=== PATIENT | male | born 1945 | race Caucasian/White ===

== ENCOUNTER → 2017-03-17 | Outpatient (CLI) | payer OTHER ==
[~2017-03-17] MED LIST: LISI-788 PO; SIMV40TA2 PO
[2017-03-17 18:45] LABS: ALT/SGPT 33 U/L (12-78); AST/SGOT 25 U/L (15-37); BLOOD UREA NITROGEN 13 mg/dl (7-18); BUN/CREATININE RATIO 12.8 (10-20); CALCIUM 9.8 mg/dl (8.5-10.1); CARBON DIOXIDE 24 mmol/L (21-32); CHLORIDE 107 mmol/L (98-107); GLUCOSE 110 mg/dl (70-99); POTASSIUM 3.8 mmol/L (3.5-5.1); SODIUM 139 mmol/L (136-145)
[2017-03-17 18:47] LABS: ALKALINE PHOSPHATASE 94 U/L (45-117); CHOLESTEROL 153 mg/dl (0-200); CHOLESTEROL/HDL RATIO 3.3; HDL CHOLESTEROL 47 mg/dl; LDL CHOLESTEROL CALCULATED 60 mg/dl; TRIGLYCERIDES 230 mg/dl (0-150); VERY LOW DENSITY LIPOPROT CALC 46 mg/dl
[2017-03-18 07:37] LABS: ESTIMATED AVERAGE GLUCOSE 137 mg/dl; HA1C FLAG Normal (Normal)
--- NOTE | 2017-04-12 13:15 | CODING QUERY MEDICAL NECESSITY ---
CQSUPPORTING DIAGNOSIS NEEDED A supporting diagnosis is required for the test/procedure performed on this patient in order for us to be reimbursed by the patient's insurance. Please provide a supporting diagnosis for the following test/procedure listed below next to the test name along with your signature. *If there is no additional diagnosis for this patient that would support the following test/procedure please document that below next to the test/procedure. Test(s)/Procedure(s) that require a supporting diagnosis: DOS 03/17/17 GLYCATED HEMOGLOBIN TEST Provider Signature: Date: Thank you Carol Ramirez Health Information Management Once completed, please kindly fax back to [phone] For questions please call [phone]
== END | disposition home or self-care (01) ==
LOC: C.LABPVFM 14:24
PROVIDERS: ATTEND Nurse Practitioner
DX: R60.0 Localized edema (principal); E78.5 Hyperlipidemia, unspecified; I10 Essential (primary) hypertension; E11.9 Type 2 diabetes mellitus without complications

== ENCOUNTER → 2017-11-02 | Outpatient (CLI) | payer OTHER ==
[2017-11-02 13:21] LABS: HEMOGLOBIN A1C 6.5 % (4.5-5.6)
[2017-11-02 13:32] LABS: BLOOD UREA NITROGEN 19 mg/dl (7-18); CALCIUM 9.6 mg/dl (8.5-10.1); CARBON DIOXIDE 29 mmol/L (21-32); CREATININE 1.13 mg/dl (0.60-1.40); GLUCOSE 129 mg/dl (70-99); POTASSIUM 3.7 mmol/L (3.5-5.1); SODIUM 135 mmol/L (136-145)
== END | disposition home or self-care (01) ==
LOC: C.LABPVFM 10:01
PROVIDERS: ATTEND Nurse Practitioner
DX: I10 Essential (primary) hypertension (principal); E11.69 Type 2 diabetes mellitus with other specified complication

== ENCOUNTER → 2018-04-21 | Outpatient (CLI) | payer OTHER ==
--- NOTE | 2018-04-21 11:54 | DIAGNOSTIC IMAGING REPORT ---
RIGHT TIBIA AND FIBULA 2 VIEWS CLINICAL HISTORY: AP and lateral views of the right tibia and fibula are obtained. No prior studies are available for comparison at the time of dictation. The skeletal structures are osteopenic. No acute fracture is identified. A benign-appearing 10 mm cortical-based lucency is noted in the proximal fibula. The knee and ankle joints are grossly maintained. A dorsal calcaneal enthesophyte is observed. Marked soft tissue edema is present throughout the calf. IMPRESSION: 1. Soft tissues swelling with no radiographic evidence of right tibial or fibular fracture. 2. A 10 mm benign-appearing cortical-based lucency is noted in the proximal fibula. A 6 month precautionary follow-up is recommended for reassessment. Electronically signed by: Elvin Laureano M.D. 04/21/2018 11:53 AM Dictated Date/Time: 04/21/2018 11:51 AM
== END | disposition home or self-care (01) ==
LOC: C.RADPV 11:35
PROVIDERS: ATTEND Family Medicine
DX: S80.10XA Contusion of unspecified lower leg, initial encounter (principal); X58.XXXA Exposure to other specified factors, initial encounter; M79.606 Pain in leg, unspecified; M79.9 Soft tissue disorder, unspecified; M85.861 Other specified disorders of bone density and structure, right lower leg

== ENCOUNTER 2023-04-13 08:24 | Observation (INO) ==
--- NOTE | 2023-04-13 08:43 | Emergency Department Note ---
Impression & Plan Chest pain ED Provider Note NAME: LOIS BORGES AGE: 77 SEX: M : 1945 ARRIVES VIA: Ambulance INFORMANT: Patient, EMS ED PROVIDER(S): Yvan Owusu DO CHIEF COMPLAINT: Chest pain HPI: The patient is a 77-year-old male who presented to the emergency department for an evaluation of chest pain. The patient describes anterior chest pain that he describes as a pressure which began over the course the last few days. He notices it with exertion. He noticed it today when he was out walking. He states the pain is now resolved. He called 911 because of the pain. He was given aspirin and nitroglycerin prior to arrival. He has a history of diabetes. He also has a history of venous thromboembolic disease. He states this does not feel like his previous history of thromboembolic disease. He denies having any worsening leg swelling but does have chronic right leg swelling. ROS: See above HPI for pertinent positives & negatives. A total of 10 systems reviewed and were otherwise negative. PAST MEDICAL HISTORY: See Below PAST SURGICAL HISTORY: See Below FAMILY HISTORY: See Below SOCIAL HISTORY: See Below HOME MEDICATIONS: See Below ALLERGIES: See Below VITALS: See Below PHYSICAL EXAMINATION: GENERAL: Patient is awake alert in no acute distress patient is resting comfortably and showing no signs of anxiety EYES: The conjunctivae are clear. The pupils are round and reactive. EARS, NOSE, MOUTH AND THROAT: The nose is without any evidence of any deformity. NECK: The neck is nontender and supple. RESPIRATORY: Normal respiratory effort is noted there is no evidence of wheezing rhonchi or rales CARDIOVASCULAR: Regular rate and rhythm noted there no murmurs rubs or gallops normal S1 normal S2. GASTROINTESTINAL: The abdomen is soft. Abdomen is nontender. MUSCULOSKELETAL/EXTREMITIES: There is no evidence of gross deformity full range of motion is noted in the hips and shoulders. SKIN: Pedal edema was noted bilaterally right greater than left. Pulses are symmetric in both feet. NEUROLOGIC: Patient is awake alert and oriented x3 MEDICAL DECISION MAKING: The patient is a 77-year-old male who presented to the emergency department for an evaluation of chest pain. The patient has been having exertional chest pain over the course the last few days. The patient was treated with aspirin and nitroglycerin prior to arrival with significant improvement of his symptoms. I discussed the patient's laboratory and radiographic studies with him. I discussed the limitations of the emergency department work-up for chest pain with him. Ultimately I do feel the patient may require further inpatient work- up for this discomfort especially given his age and comorbidities. For this reason I discussed this case with the on-call [facility] hospitalist. They have agreed to evaluate the patient in the emergency department for further management and disposition. Triage Nursing notes reviewed. Prior medical records reviewed Vital Signs: reviewed and remarkable for elevated blood pressure. Differential diagnosis: Cardiac ischemia, aortic dissection, pulmonary embolism, pneumothorax, pneumonia, pericarditis, myocarditis, esophageal rupture, GERD, cholecystitis, pancreatitis, musculoskeletal, as well as other pathologies. ER treatment provided: See below Diagnostics interpreted by me: ECG: EKG was obtained in the emergency department. My interpretation is sinus rhythm at 92 bpm. Frequent PVCs were noted. ST segment depressions were noted in the low lateral leads. This was compared to a tracing from June 23, 2011. No significant changes were noted. Prehospital EKG was reviewed. My interpretation is sinus rhythm at 97 bpm. Frequent PVCs were noted. The ST segment depression is present on the prehosp ital EKG as well. This compares similar to the EKG obtained in the emergency department Cardiac Monitoring: An order was placed for continuous cardiac monitoring. The monitor shows a rate of 91 bpm with sinus rhythm. Laboratory studies: As stated above and show below. Imaging studies: See below. Radiographic imaging was reviewed by myself Consultation(s): I discussed this case with Dr. John who is on-call for the [facility] ospitalist group. Past Med/Surg History Medical History (Updated 04/13/23 @ 11:14 by Emre John MD) Diabetes mellitus Diverticulosis of colon History of DVT (deep vein thrombosis) 2007 - RLE (provoked - extensive car travel) Hyperlipidemia Hypertension Obesity, diabetes, and hypertension syndrome Surgical History Hx of hernia repair umbilical Hx of knee surgery left- arthroscopy Hx of tonsillectomy Family History Father Prostate cancer Stroke Mother Dementia Grandfather (Maternal) Coronary heart disease in his 90s from CAD Denies family history of Ovarian cancer Myocardial infarction Breast cancer Colorectal cancer Social History (Updated 04/13/23 @ 11:08 by Emre John MD) Smoking Status: Never smoker Second Hand Exposure: No; Do You Dip or Chew Tobacco: No; Hx Alcohol Use: Yes Alcohol type: wine Alcohol Intake Frequency: Monthly or Less Alcohol Intake Frequency Comment: On occasion Hx Substance Use: No Preferred Language: [place] Communication Ability: Effective Satellite Communications Operator Required: No Beliefs That Will Affect Care: None marital status: Current Living Situation: Spouse current occupational status: retired 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 How many Children do You have: 2 Other Information That Helps Us Care for You: No Feels Safe at Home: Yes Safety Concerns: Feels Safe At This Time Childhood Exposure to Second-Hand Smoke: No Diet: regular caffeine: Yes Dental Care, Regularly: Yes Physical Activity Frequency: Does not Exercise Seatbelt Use: always Sunscreen Use: No Assistive Devices: None Allergies Allergies Allergy/AdvReac Type Severity Reaction Status Date / Time MARYA Inhibitors Allergy Verified 04/13/23 10:44 lisinopril Allergy Verified 04/13/23 10:44 codeine AdvReac Intermediate STOMACH Unverified 04/13/23 10:44 PROBLEMS Home Meds Home Medications Medication Instructions Recorded Confirmed epinephrine 0.3 mg/0.3 mL 0.3 ml IM ONCE PRN anaphylaxis #1 05/25/19 04/13/23 injection, auto-injector ea Previous Rx's Medication Instructions Recorded aspirin 81 mg tablet,delayed 81 mg PO DAILY #30 tabs 06/01/19 release (Derrick Low Dose Aspirin) metformin 750 mg tablet,extended 750 mg PO BID #180 tabs 04/22/22 release 24 hr amlodipine 10 mg tablet 10 mg PO DAILY #90 tabs 10/23/22 hydrochlorothiazide 12.5 mg tablet 12.5 mg PO DAILY #90 tabs 10/23/22 rosuvastatin 20 mg tablet 20 mg PO DAILY #90 tabs 10/23/22 sildenafil 50 mg tablet 50 mg PO DAILY PRN sexual activity 11/23/22 #10 tabs Results & Data (ED) Vital Signs Vital Signs - 24 hr 04/13/23 08:27 04/13/23 08:27 04/13/23 08:35 Temperature 36.5 C Temperature Source Oral Pulse Rate 99 H Respiratory Rate 20 Respiratory Effort / Characteristics Non-Labored Respiratory Depth Normal Blood Pressure 184/95 H Blood Pressure Mean 124 Pulse Oximetry 97 95 96 Oxygen Delivery Method Room Air Room Air Room Air Sepsis Recent Fever Within 48 Hours No Sepsis New/Unexplained Change in Mental Status N/A Sepsis Action Taken by Nursing No Action Required 04/13/23 08:50 Temperature Temperature Source Pulse Rate 91 H Respiratory Rate Respiratory Effort / Characteristics Respiratory Depth Blood Pressure Blood Pressure Mean Pulse Oximetry Oxygen Delivery Method Sepsis Recent Fever Within 48 Hours Sepsis New/Unexplained Change in Mental Status Sepsis Action Taken by Longterm Medications Current Medication List: was personally reviewed by me Laboratory Data Attestation: I reviewed the patient's lab results. 04/13/23 08:30 04/13/23 08:30 Lab Results 04/13/23 04/13/23 04/13/23 Range/Units 08:30 08:30 08:30 WBC 8.62 (4.8-10.8) K/ul RBC 5.66 (4.70-6.10) M/uL Hgb 17.1 (14.0-18.0) g/dl Hct 49.2 (42.0-52.0) % MCV 86.9 (80.0-100.0) fL MCH 30.2 (25.0-34.0) pg MCHC 34.8 (32.0-36.0) g/dL RDW Std Deviation 40.4 (36.4-46.3) fL RDW Coeff of Belia 12.9 (11.5-14.5) % Plt Count 261 (130-400) K/uL MPV 10.2 (9.4-12.4) fL Immature Gran % (Auto) 0.3 % Neut % (Auto) 69.8 % Lymph % (Auto) 19.8 % [place] % (Auto) 7.5 % Eos % (Auto) 1.9 % Baso % (Auto) 0.7 % Neut # (Auto) 6.01 (1.40-6.50) K/uL Lymph # (Auto) 1.71 (1.2-3.4) K/uL [place] # (Auto) 0.65 H (0.11-0.59) K/uL Eos # (Auto) 0.16 (0-0.50) K/uL Baso # (Auto) 0.06 (0-0.2) K/uL Immature Gran # (Auto) 0.03 (0.01-0.20) K/uL PT (9.0-12.0) Seconds INR (0.9-1.1) APTT (21.0-31.0) Seconds PTT Ratio Sodium 137 (136-145) mmol/L Potassium TNP Chloride 100 (98-107) mmol/L Carbon Dioxide 26 (21-32) mmol/L Anion Gap 11 (3-11) BUN 19 (6-23) mg/dl Creatinine 0.95 (0.6-1.4) mg/dl Est Cr Clr Drug Dosing 93.3 ml/min Est GFR ( Amer) 90.4 ml/min Est GFR (Non-Af Amer) 78.0 ml/min BUN/Creatinine Ratio 20.0 (10-20) Glucose 153 H (70-99(Fasting)) mg/dl Estimat Average Glucose 189 mg/dl Hemoglobin A1c 8.2 H (4.5-5.6) % Calcium 9.9 (8.6-10.3) mg/dl Total Bilirubin 0.6 (0.2-1.0) mg/dl AST TNP ALT 26 (7-52) U/L Alkaline Phosphatase 76 (34-104) U/L Troponin I High Sens 6.7 (0-20) pg/ml Total Protein 7.6 (6.0-8.3) gm/dl Albumin 4.4 (3.4-5.0) gm/dl Globulin 3.2 (2.5-4.0) gm/dl Albumin/Globulin Ratio 1.4 (0.9-2) Lipase 17 (11-82) U/L 04/13/23 04/13/23 Range/Units 08:30 09:44 WBC (4.8-10.8) K/ul RBC (4.70-6.10) M/uL Hgb (14.0-18.0) g/dl Hct (42.0-52.0) % MCV (80.0-100.0) fL MCH (25.0-34.0) pg MCHC (32.0-36.0) g/dL RDW Std Deviation (36.4-46.3) fL RDW Coeff of Belia (11.5-14.5) % Plt Count (130-400) K/uL MPV (9.4-12.4) fL Immature Gran % (Auto) % Neut % (Auto) % Lymph % (Auto) % [place] % (Auto) % Eos % (Auto) % Baso % (Auto) % Neut # (Auto) (1.40-6.50) K/uL Lymph # (Auto) (1.2-3.4) K/uL [place] # (Auto) (0.11-0.59) K/uL Eos # (Auto) (0-0.50) K/uL Baso # (Auto) (0-0.2) K/uL Immature Gran # (Auto) (0.01-0.20) K/uL PT 10.6 (9.0-12.0) Seconds INR 1.0 (0.9-1.1) APTT 26.5 (21.0-31.0) Seconds PTT Ratio 0.9 Sodium (136-145) mmol/L Potassium 4.0 Chloride (98-107) mmol/L Carbon Dioxide (21-32) mmol/L Anion Gap (3-11) BUN (6-23) mg/dl Creatinine (0.6-1.4) mg/dl Est Cr Clr Drug Dosing ml/min Est GFR ( Amer) ml/min Est GFR (Non-Af Amer) ml/min BUN/Creatinine Ratio (10-20) Glucose (70-99(Fasting)) mg/dl Estimat Average Glucose mg/dl Hemoglobin A1c (4.5-5.6) % Calcium (8.6-10.3) mg/dl Total Bilirubin (0.2-1.0) mg/dl AST 21 ALT (7-52) U/L Alkaline Phosphatase (34-104) U/L Troponin I High Sens (0-20) pg/ml Total Protein (6.0-8.3) gm/dl Albumin (3.4-5.0) gm/dl Globulin (2.5-4.0) gm/dl Albumin/Globulin Ratio (0.9-2) Lipase (11-82) U/L Administered Medications Heparin Sodium/Dextrose (Heparin Sodium/Dextrose) 25,000 units in 500 mls @ 35 mls/hr IV .[id number] FOR[facility]LY [facility]; Protocol Stop: 05/13/23 11:59 Last Admin: 04/13/23 12:40 Dose: 1,750 units/hr, 35 mls/hr Documented By: CARA Co-signed By: HLK Sodium Chloride (Nss 1000ml) 1,000 mls @ 100 mls/hr IV .Q10H KACEY Stop: 05/13/23 12:36 Last Admin: 04/13/23 12:44 Dose: 100 mls/hr Documented By: CARA Discontinued Medications Amlodipine Besylate (Amlodipine Besylate 5 Mg Tab) 10 mg PO NOW ONE Stop: 04/13/23 09:51 Last Admin: 04/13/23 10:12 Dose: 10 mg Documented By: TONNY Heparin Sodium/Dextrose (Heparin 84925 Unit/500 Ml D5w) Confirm Administered Dose 25,000 units IV .STK-MED ONE Stop: 04/13/23 11:14 Last Admin: 04/13/23 12:40 Dose: Not Given Documented By: CARA Metoprolol Tartrate (Metoprolol Tartrate 25 Mg Tab) 12.5 mg PO ONE ONE Stop: 04/13/23 11:00 Last Admin: 04/13/23 12:49 Dose: Not Given Documented By: CARA Imaging Data Attestation: I personally reviewed and interpreted this imaging study as follows: My Impression: 1 view chest x-ray was obtained in the emergency department. My interpretation is no free air or definite infiltrate, final report below. Radiologist's Impression: Chest X-Ray 04/13/23 08:30 XR chest 1V portable HISTORY: 77 years-old Male Chest pain, nonspecific COMPARISON: None TECHNIQUE: AP view of the chest FINDINGS: Cardiomediastinal and hilar silhouettes are within normal limits. Mild right hemidiaphragmatic elevation. No pneumothorax, pleural effusion or overt pulmonary edema. Mild subsegmental left basilar atelectasis. Degenerative changes of the shoulders and spine. IMPRESSION: No acute process. ACT 112: Negative or not required by law. The above report was generated using voice recognition software. It may contain grammatical, syntax or spelling errors. Electronically signed by: Stephen Kaufman M.D. 04/13/2023 8:44 AM Discharge Plan Visit Data Chief Complaint: Chest Pain ED Provider: Yvan Owusu Discharge Problem: Chest pain Patient Disposition: Admitted As Inpatient Discharge Instructions Interventions: ED Discharge Assessment Last Done: 04/13/23 12:40 Chest pain Qualifiers: Chest pain type: unspecified Qualified Code(s): R07.9 - Chest pain, unspecified
--- NOTE | 2023-04-13 08:45 | XRay Report ---
XR chest 1V portable HISTORY: 77 years-old Male Chest pain, nonspecific COMPARISON: None TECHNIQUE: AP view of the chest FINDINGS: Cardiomediastinal and hilar silhouettes are within normal limits. Mild right hemidiaphragmatic elevat ion. No pneumothorax, pleural effusion or overt pulmonary edema. Mild subsegmental left basilar atele ctasis. Degenerative changes of the shoulders and spine. IMPRESSION: No acute process. ACT 112: Negative or not required by law. The above report was generated using voice recognition software. It may contain grammatical, syntax o r spelling errors. Electronically signed by: Stephen Kaufman M.D. 04/13/2023 8:44 AM
[2023-04-13 09:00] LABS: Basophils # (auto) 0.06 K/uL (0-0.2); Basophils % (auto) 0.7 %; Eosinophils # (auto) 0.16 K/uL (0-0.50); Eosinophils % (auto) 1.9 %; Hematocrit (blood only) 49.2 % (42.0-52.0); Hemoglobin 17.1 g/dl (14.0-18.0); Immature Granulocytes # (auto) 0.03 K/uL (0.01-0.20); Immature Granulocytes % (auto) 0.3 %; Lymphocytes # (auto) 1.71 K/uL (1.2-3.4); Lymphocytes % (auto) 19.8 %; Mean Corpuscular Hemoglobin 30.2 pg (25.0-34.0); Mean Corpuscular Hgb Conc 34.8 g/dL (32.0-36.0); Mean Corpuscular Volume 86.9 fL (80.0-100.0); Mean Platelet Volume 10.2 fL (9.4-12.4); Monocytes # (auto) 0.65 K/uL (0.11-0.59); Monocytes % (auto) 7.5 %; Neutrophils # (auto) 6.01 K/uL (1.40-6.50); Neutrophils % (auto) 69.8 %; Platelet Count 261 K/uL (130-400); RDW Coefficient of Variation 12.9 % (11.5-14.5); RDW Standard Deviation 40.4 fL (36.4-46.3); Red Blood Count 5.66 M/uL (4.70-6.10); White Blood Count 8.62 K/ul (4.8-10.8)
[2023-04-13 09:21] LABS: Alanine Aminotransferase 26 U/L (7-52); Albumin Globulin Ratio 1.4 (0.9-2); Albumin Level 4.4 gm/dl (3.4-5.0); Alkaline Phosphatase 76 U/L (34-104); Anion Gap 11 (3-11); Bilirubin,Total 0.6 mg/dl (0.2-1.0); Blood Urea Nitrogen 19 mg/dl (6-23); Calcium 9.9 mg/dl (8.6-10.3); Carbon Dioxide 26 mmol/L (21-32); Chloride 100 mmol/L (98-107); Creatinine Clr Calc Pharmacy 93.3 ml/min; Est GFR (African American) 90.4 ml/min; Globulin 3.2 gm/dl (2.5-4.0); Glucose 153 mg/dl (70-99(Fasting)); Lipase 17 U/L (11-82); Sodium 137 mmol/L (136-145); Total Protein 7.6 gm/dl (6.0-8.3)
[2023-04-13 09:26] LABS: Troponin I High Sensitivity 6.7 pg/ml (0-20)
[2023-04-13] MEDS ORDERED: amLODIPine BESYLATE 5 MG TAB PO ONE (09:50)
[2023-04-13] MEDS ORDERED: ASPIRIN 81 MG ECTAB PO STA (09:51)
--- NOTE | 2023-04-13 09:57 | History & Physical Report ---
Date of Service April 13, 2023 Assessment & Plan (1) Chest pressure: Plan: His history is concerning for ischemia. He has multiple CAD risk factors including obesity, DM, HTN, hyperlipidemia, etc. His chest pressure episodes are becoming more frequent and requiring less activity to be provoked (this am he walked up 1 flight of steps which led to chest pressure with dyspnea). The pattern could represent unstable angina despite the negative EKG and the initial negative troponin. Symptoms did jeff fully with nitroglycerin given by EMS. Alternatively, he did just travel by car extensively in late February, and had extensive DVT of the RLE in 2007. VTE (DVT with PEs) cannot be fully ruled out at this time. Plan - * HS troponin now * STAT doppler of RLE - r/o DVT; strongly consider CTA chest to definitively r/o PE * telemetry * NPO in the event he needs heart cath * heparin infusion - this will cover unstable angina as well as small chance of VTE * continue aspirin 81mg daily * add metoprolol 12.5mg BID, first dose now * I also gave amlodipine in ER due to markedly elevated BPs * cardiology consult * echo I discussed his care with Dr Rodríguez from [facility]. In light of crescendoing symptoms/episodes proceeding with stress test is likely not prudent. If VTE is excluded then proceeding with heart catheterization may be best option. (2) History of DVT (deep vein thrombosis): Plan: RLE extensive 2007 provoked - extensive car travel to/from [facility] to [place] at that time took coumadin ~2 years no VTE since then no family h/o VTE see #1 above (3) Unstable angina: Plan: see #1 above nitro SL prn if recurrent pain then give nitropaste start beta danay serial trops echo (4) PVCs (premature ventricular contractions): Plan: numerous as seen on monitoring check mag level K noted to be normal start beta danay could be indicative of active ischemia (5) Diabetes mellitus: Plan: Check Hba1c BSGs q6h while NPO novolog SSI hold metformin (6) Hyperlipidemia: Plan: LDL was 52 in 03/2022 plan to recheck lipid profile while here (7) Hypertension: Plan: uncontrolled start metoprolol 12.5mg BID and titrate as needed gave amlodipine 10mg in ER which is chronic medication for him titrate meds and/or add MARYA/ARB for optimal control (8) Obesity (BMI 30-39.9): Plan: BMI 36.6 Plan updated at bedside care d/w cardiology History of Present Illness Chief Complaint: chest pressure Primary Care Provider: SHYLA Khalil 77yo male with history of T2DM, obesity, HTN, hyperlipidemia, and extensive DVT of the RLE in 2007 (provoked, multiple car trips to [place] from [facility]) presents with 3 days of intermittent chest pressure. Patient reports that for the last 2-3 weeks he has had severe fatigue. 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 The chest pressure was associated with a "pounding" sensation as well as mild dyspnea. The symptoms improved Wednesday simply by resting. No nausea/vomiting. No diaphoresis. With respect to the "pounding" sensation he reports NO tachycardia or heart racing but that he can simply feel his heart having skipped beats and beating strongly. On Wednesday he again had chest pressure with activities as well as the pounding sensation and dyspnea on exertion. Rest would alleviate the discomfort. He could not tell me how many times he felt the chest pressure on Wednesday. Wednesday he had similar symptoms of chest pressure with activity. His fatigue persisted. Then this am he was walking his dog and about 1/4 mile into the walk he developed the chest pressure with dyspnea. He walked back to his home and the pressure continued. He rested and the symptoms did jeff. However, he then climbed one flight of steps in his home and immediately had chest pressure with dyspnea. At that point he & his dialed 911. In the ambulance he recalls still having chest pressure and aspirin along with SL nitro were given. The pressure fully resolved with such. He has been chest pressure free since the ambulance ride. Patient thinks he took his medications this am but wasn't completely sure. He & his did travel by car from March 21 to March 28 to [facility]. With respect to his DVT event in 2007 he was NOT told he had PEs at that time. Allergies Allergy/AdvReac Type Severity Reaction Status Date / Time MARYA Inhibitors Allergy Verified 04/13/23 10:44 lisinopril Allergy Verified 04/13/23 10:44 codeine AdvReac Intermediate STOMACH Unverified 04/13/23 10:44 PROBLEMS Home Medications Medication Instructions Recorded Confirmed Type epinephrine 0.3 mg/0.3 mL 0.3 ml IM ONCE PRN anaphylaxis #1 05/25/19 04/13/23 History injection, auto-injector ea aspirin 81 mg tablet,delayed 81 mg PO DAILY #30 tabs 06/01/19 04/13/23 Rx release (Derrick Low Dose Aspirin) metformin 750 mg tablet,extended 750 mg PO BID #180 tabs 04/22/22 04/13/23 Rx release 24 hr amlodipine 10 mg tablet 10 mg PO DAILY #90 tabs 10/23/22 04/13/23 Rx hydrochlorothiazide 12.5 mg tablet 12.5 mg PO DAILY #90 tabs 10/23/22 04/13/23 Rx rosuvastatin 20 mg tablet 20 mg PO DAILY #90 tabs 10/23/22 04/13/23 Rx sildenafil 50 mg tablet 50 mg PO DAILY PRN sexual activity 11/23/22 04/13/23 Rx #10 tabs Past Med/Surg History Medical History (Updated 04/13/23 @ 11:14 by Emre John MD) Diabetes mellitus Diverticulosis of colon History of DVT (deep vein thrombosis) 2007 - RLE (provoked - extensive car travel) Hyperlipidemia Hypertension Obesity, diabetes, and hypertension syndrome Surgical History Hx of hernia repair umbilical Hx of knee surgery left- arthroscopy Hx of tonsillectomy Family History Father Prostate cancer Stroke Mother Dementia Grandfather (Maternal) Coronary heart disease in his 90s from CAD Denies family history of Ovarian cancer Myocardial infarction Breast cancer Colorectal cancer Social History (Updated 04/13/23 @ 11:08 by Emre John MD) Smoking Status: Never smoker Second Hand Exposure: No; Do You Dip or Chew Tobacco: No; Hx Alcohol Use: Yes Alcohol type: wine Alcohol Intake Frequency: Monthly or Less Alcohol Intake Frequency Comment: On occasion Hx Substance Use: No Preferred Language: Kosovan Communication Ability: Effective Clothing Room Supervisor Required: No Beliefs That Will Affect Care: None marital status: Current Living Situation: Spouse current occupational status: retired 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 How many Children do You have: 2 Other Information That Helps Us Care for You: No Feels Safe at Home: Yes Safety Concerns: Feels Safe At This Time Childhood Exposure to Second-Hand Smoke: No Diet: regular caffeine: Yes Dental Care, Regularly: Yes Physical Activity Frequency: Does not Exercise Seatbelt Use: always Sunscreen Use: No Assistive Devices: None Review of Systems Review of Systems: gen - no fevers or chills; good appetite; no weight change eyes - no change in vision last few days HENT - no sore throat, no dysphagia CV - chest pressure episodes x 3 days; no orthopnea; chronic right leg edema since his DVT; palpitations pulm - dyspnea on exertion x 3 days; mild dyspnea at rest today with his chest pressure; no cough GI - no nausea/emesis/diarrhea/BRBPR - no LUTs; no dysuria musculo - no arm or leg pains today endo - does not check his BSGs skin - no rash neuro - no headache Physical Exam Physical Exam: gen - obese, NAD eyes - PERRL HENT - hearing aids b/l; MMM; no lesions neck - no bruits; no JVD; no lymph nodes; no thyroid mass heart - irregular (PVCs); s1 s2; no murmur lungs - CTA b/l chest - no reproducible chest wall tenderness to palpation abd - obese, soft, NT, ND, BS+, no HSM ext - <1+ edema RLE; none on left; pulses 2+ b/l feet skin - stasis changes RLE mesa neuro - strength 5/5 x 4 exts; DTRs 2+ b/l upper & lower ext psych - a/o x 3 Results & Data Results & Data Vital Signs (Past 12 Hours) Vital Signs Temp Pulse Resp BP Pulse Ox O2 Del Method 04/13/23 08:50 91 H 04/13/23 08:35 96 Room Air 04/13/23 08:27 95 Room Air 04/13/23 08:27 36.5 C 99 H 20 184/95 H 97 Room Air Laboratory Results Laboratory Results - last 24 hr 04/13/23 04/13/23 04/13/23 08:30 08:30 08:30 WBC 8.62 RBC 5.66 Hgb 17.1 Hct 49.2 MCV 86.9 MCH 30.2 MCHC 34.8 RDW Std Deviation 40.4 RDW Coeff of Belia 12.9 Plt Count 261 MPV 10.2 Immature Gran % (Auto) 0.3 Neut % (Auto) 69.8 Lymph % (Auto) 19.8 [place] % (Auto) 7.5 Eos % (Auto) 1.9 Baso % (Auto) 0.7 Neut # (Auto) 6.01 Lymph # (Auto) 1.71 [place] # (Auto) 0.65 H Eos # (Auto) 0.16 Baso # (Auto) 0.06 Immature Gran # (Auto) 0.03 PT INR APTT PTT Ratio Sodium 137 Potassium TNP Chloride 100 Carbon Dioxide 26 Anion Gap 11 BUN 19 Creatinine 0.95 Est Cr Clr Drug Dosing 93.3 Est GFR ( Amer) 90.4 Est GFR (Non-Af Amer) 78.0 BUN/Creatinine Ratio 20.0 Glucose 153 H Estimat Average Glucose Pending Hemoglobin A1c Pending Calcium 9.9 Magnesium Total Bilirubin 0.6 AST TNP ALT 26 Alkaline Phosphatase 76 Troponin I High Sens 6.7 Total Protein 7.6 Albumin 4.4 Globulin 3.2 Albumin/Globulin Ratio 1.4 Lipase 17 SARS-CoV-2 (PCR) 04/13/23 04/13/23 04/13/23 08:30 09:44 10:14 WBC RBC Hgb Hct MCV MCH MCHC RDW Std Deviation RDW Coeff of Belia Plt Count MPV Immature Gran % (Auto) Neut % (Auto) Lymph % (Auto) [place] % (Auto) Eos % (Auto) Baso % (Auto) Neut # (Auto) Lymph # (Auto) [place] # (Auto) Eos # (Auto) Baso # (Auto) Immature Gran # (Auto) PT Pending INR Pending APTT Pending PTT Ratio Pending Sodium Potassium 4.0 Chloride Carbon Dioxide Anion Gap BUN Creatinine Est Cr Clr Drug Dosing Est GFR ( Amer) Est GFR (Non-Af Amer) BUN/Creatinine Ratio Glucose Estimat Average Glucose Hemoglobin A1c Calcium Magnesium Total Bilirubin AST 21 ALT Alkaline Phosphatase Troponin I High Sens Total Protein Albumin Globulin Albumin/Globulin Ratio Lipase SARS-CoV-2 (PCR) NEGATIVE 04/13/23 11:05 WBC RBC Hgb Hct MCV MCH MCHC RDW Std Deviation RDW Coeff of Belia Plt Count MPV Immature Gran % (Auto) Neut % (Auto) Lymph % (Auto) [place] % (Auto) Eos % (Auto) Baso % (Auto) Neut # (Auto) Lymph # (Auto) [place] # (Auto) Eos # (Auto) Baso # (Auto) Immature Gran # (Auto) PT INR APTT PTT Ratio Sodium Potassium Chloride Carbon Dioxide Anion Gap BUN Creatinine Est Cr Clr Drug Dosing Est GFR ( Amer) Est GFR (Non-Af Amer) BUN/Creatinine Ratio Glucose Estimat Average Glucose Hemoglobin A1c Calcium Magnesium Pending Total Bilirubin AST ALT Alkaline Phosphatase Troponin I High Sens Pending Total Protein Albumin Globulin Albumin/Globulin Ratio Lipase SARS-CoV-2 (PCR) Diagnostic Findings Chest X-Ray 04/13/23 08:30 XR chest 1V portable HISTORY: 77 years-old Male Chest pain, nonspecific COMPARISON: None TECHNIQUE: AP view of the chest FINDINGS: Cardiomediastinal and hilar silhouettes are within normal limits. Mild right hemidiaphragmatic elevation. No pneumothorax, pleural effusion or overt pulmonary edema. Mild subsegmental left basilar atelectasis. Degenerative changes of the shoulders and spine. IMPRESSION: No acute process. ACT 112: Negative or not required by law. The above report was generated using voice recognition software. It may contain grammatical, syntax or spelling errors. Electronically signed by: Stephen Kaufman M.D. 04/13/2023 8:44 AM EKG #1 - NSR with PVCs, no ST changes EKG #2 - NSR with PVCs, T waves slightly more flat V4-V6 in comparison to EKG #1 Code Status & VTE Plan Code Status full VTE Prophylaxis Plan VTE Prophylaxis will be ordered: Yes PG Care Time/CCT Total # of Minutes Spent Total Time Spent with Patient: Total time spent is greater than 50% in coordination of care (as documented) at patient's floor/unit and/or counseling patient: Coding Level of Care Code 00769 INT INP/OBS CARE 3/75MIN Diagnoses Chest pressure R07.89 History of DVT (deep vein thrombosis) Z86.718 Unstable angina I20.0 PVCs (premature ventricular contractions) I49.3 Diabetes mellitus E11.9 Hyperlipidemia E78.5 Hypertension I10 Obesity (BMI 30-39.9) E66.9
[2023-04-13] MEDS ORDERED: METOPROLOL TARTRATE 25 MG TAB PO ONE (10:59)
[2023-04-13] MEDS ORDERED: HEPARIN 25000 UNIT/500 ML D5W IV ONE (11:13)
[2023-04-13] MEDS ORDERED: Heparin IV Adult Wt-Based Standard *NO* Bolus Protocol IV SCH (11:15)
[2023-04-13 11:28] LABS: Partial Thromboplastin Ratio 0.9; Partial Thromboplastin Time 26.5 Seconds (21.0-31.0); Prothrombin Time 10.6 Seconds (9.0-12.0)
[2023-04-13 11:44] LABS: Troponin I High Sensitivity 5.9 pg/ml (0-20)
[2023-04-13 11:45] LABS: Estimated Average Glucose 189 mg/dl; Hemoglobin A1C 8.2 % (4.5-5.6)
[2023-04-13] MEDS ORDERED: ONDANSETRON INJ 2 MG/ML 2 ML VIAL IV PRN (12:37)
[2023-04-13] MEDS ORDERED: NITROGLYCERIN SL 0.4 MG/TAB TAB SL PRN (12:37)
[2023-04-13] MEDS ORDERED: ACETAMINOPHEN 325 MG TAB PO PRN (12:37)
[2023-04-13] MEDS ORDERED: EPINEPHrine ADULT AUTO-INJECT 0.3 MG SYR IM PRN (12:37)
[2023-04-13] MEDS ORDERED: MoRPHine SULFATE 2 MG/ML CARP IV PRN (12:37)
[2023-04-13] MEDS: HEPARIN SODIUM/DEXTROSE 25,000 UNITS/500 ML BAG IV SCH (12:40)
[2023-04-13] MEDS: SODIUM CHLORIDE 0.9% 1000ML 1,000 ML IV SCH (12:44)
--- NOTE | 2023-04-13 13:39 | XCELERA ---
[id number] \\[id number]
[2023-04-13] MEDS ORDERED: IOVERSOL 350 MG 125mL Prefilled Syringe IV ONE (14:03)
--- NOTE | 2023-04-13 14:27 | CT Scan Report ---
CT angio chest PE protocol CT DOSE: 792.06 mGy.cm HISTORY: 77 years-old Male with recent travel, chest pain, h/o DVT. Acute chest pain with shortness of breath TECHNIQUE: Multiple CTA images of the chest were obtained after the intravenous administration of 118 ml Optiray. Coronal and sagittal MIPS were obtained from the axial data set and were submitted for review. All measurements were obtained according to NASCET criteria. A dose lowering technique was u tilized adhering to the principles of ALARA. COMPARISON: Chest radiograph of same day. FINDINGS: CTA: Mild cardiomegaly. No pericardial effusion. Moderate coronary artery calcifications. Atherosclerosis of the aorta. No pulmonary emboli identified. Segmental and subsegmental branches are not well-visual ized secondary to respiratory motion artifact. CT CHEST: No thyroid nodule or lymphadenopathy. The lung bases are partially imaged. No pneumothorax, pleural e ffusion or overt pulmonary edema. Subsegmental bibasilar densities suggest atelectasis. No suspicious pulmonary nodules or masses. Mild bronchial wall thickening. Central airways are patent. Hepatic steatosis with suggested hepatomegaly. No acute process of the imaged upper abdomen. Unremark able soft tissues. No acute fracture. IMPRESSION: 1. No pulmonary emboli identified. 2. Mild bibasilar opacities suggestive of atelectasis. 3. No pleural effusion or airspace consolidation typical for pneumonia. ACT 112: Negative or not required by law. The above report was generated using voice recognition software. It may contain grammatical, syntax o r spelling errors. Electronically signed by: Stephen Kaufman M.D. 04/13/2023 2:25 PM
--- NOTE | 2023-04-13 14:38 | Cardiology Consultation ---
Date of Consultation April 13, 2023 Assessment & Plan (1) Unstable angina: -the patient's symptoms are concerning for coronary ischemia. -agree with heparin drip and aspirin therapy. -discussed with Dr. Wright. -proceed with cardiac catheterization this afternoon. (2) Hypertension: -borderline control on current regimen. -would likely benefit from a beta-danay. (3) Hyperlipidemia: -consider increasing dose of rosuvastatin. History of Present Illness Attending Physician: Emre John MD History of Present Illness Mr. Gomez is a 77-year-old male admitted earlier today with presumed crescendo angina pectoris. This consultation was ordered to assist in his cardiac management. The patient was in his usual state of health until approximately 2 weeks ago when he began to note persistent fatigue. However, on Wednesday, he began to notice substernal chest pressure with physical activity. There was a company exertional dyspnea. His symptoms resolved with rest. He can noted symptoms on Wednesday and Wednesday. This morning, he started his usual 1/2 mi walk with his dog. He again noted substernal chest pressure with associated dyspnea. He turned around after approximately 1/4 of a mi. When he returned home, his symptoms persisted for approximately 20 minutes. The symptoms recurred after he climbed 1 flight of stairs. His then called 911. While on route, the patient was given a sublingual nitroglycerin tablet and his symptoms resolved completely. Currently, patient is pain-free. He has never known of a cardiac event. He has never had a cardiac catheterization. We have discussed need to proceed with a cardiac catheterization this afternoon. Past medical and surgical history 1. Hypertension 2. Hypercholesterolemia 3. Diabetes mellitus 4. Obesity 5. Diverticulosis 6. Provoked DVT-2007 7. Umbilical hernia repair 8. 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 Allergies Allergy/AdvReac Type Severity Reaction Status Date / Time MARYA Inhibitors Allergy Verified 04/13/23 10:44 lisinopril Allergy Verified 04/13/23 10:44 codeine AdvReac Intermediate STOMACH Unverified 04/13/23 10:44 PROBLEMS Home Medications Medication Instructions Recorded Confirmed Type epinephrine 0.3 mg/0.3 mL 0.3 ml IM ONCE PRN anaphylaxis #1 05/25/19 04/13/23 History injection, auto-injector ea aspirin 81 mg tablet,delayed 81 mg PO DAILY #30 tabs 06/01/19 04/13/23 Rx release (Derrick Low Dose Aspirin) metformin 750 mg tablet,extended 750 mg PO BID #180 tabs 04/22/22 04/13/23 Rx release 24 hr amlodipine 10 mg tablet 10 mg PO DAILY #90 tabs 10/23/22 04/13/23 Rx hydrochlorothiazide 12.5 mg tablet 12.5 mg PO DAILY #90 tabs 10/23/22 04/13/23 Rx rosuvastatin 20 mg tablet 20 mg PO DAILY #90 tabs 10/23/22 04/13/23 Rx sildenafil 50 mg tablet 50 mg PO DAILY PRN sexual activity 11/23/22 04/13/23 Rx #10 tabs Patient History Medical History (Updated 04/13/23 @ 11:14 by Emre John MD) Diabetes mellitus Diverticulosis of colon History of DVT (deep vein thrombosis) 2007 - RLE (provoked - extensive car travel) Hyperlipidemia Hypertension Obesity, diabetes, and hypertension syndrome Surgical History Hx of hernia repair umbilical Hx of knee surgery left- arthroscopy Hx of tonsillectomy Family History Father Prostate cancer Stroke Mother Dementia Grandfather (Maternal) Coronary heart disease in his 90s from CAD Denies family history of Ovarian cancer Myocardial infarction Breast cancer Colorectal cancer Social History (Updated 04/13/23 @ 11:08 by Emre John MD) Smoking Status: Never smoker Second Hand Exposure: No; Do You Dip or Chew Tobacco: No; Hx Alcohol Use: Yes Alcohol type: wine Alcohol Intake Frequency: Monthly or Less Alcohol Intake Frequency Comment: On occasion Hx Substance Use: No Preferred Language: Tajik Communication Ability: Effective Special Education Resource Room Teacher Required: No Beliefs That Will Affect Care: None marital status: Current Living Situation: Spouse current occupational status: retired 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 HEENT exam is negative. Neck is supple with full carotid upstrokes. No carotid bruits. Jugular is pressure is flat at 90. There is no thyromegaly. Cardiovascular exam reveals a regular rhythm with normal S1 and S2. No S3, S4, or murmurs are noted. Lungs are clear without rales, rhonchi or wheezes. Abdomen is obese without bruits. Extremities reveal intact radial artery and posterior tibial pulses bilaterally. There is no peripheral edema. Results & Data Vital Signs (Past 12 Hours) Vital Signs Temp Pulse Pulse Resp BP BP Pulse Ox 04/13/23 12:37 87 04/13/23 12:28 36.6 C 83 18 158/76 H 94 04/13/23 11:30 88 20 152/69 H 94 04/13/23 08:50 91 H 04/13/23 08:35 96 04/13/23 10:12 86 20 150/73 H 94 04/13/23 08:27 95 04/13/23 08:27 36.5 C 99 H 20 184/95 H 97 O2 Del Method 04/13/23 12:37 04/13/23 12:28 Room Air 04/13/23 11:30 Room Air 04/13/23 08:50 04/13/23 08:35 Room Air 04/13/23 10:12 Room Air 04/13/23 08:27 Room Air 04/13/23 08:27 Room Air Laboratory Results CBC notes hemoglobin 17.1, crit 49.2, white count 8.6, a platelet count of [id number]. Electrolytes note a sodium 137, potassium 4.0, chloride 100, bicarb 26, BUN 19, creatinine 0.95, glucose of 153. High sensitivity troponin was 6.7 on presentation, currently 5.9. Diagnostic Findings Echocardiogram noted normal left ventricular systolic function without wall motion abnormalities. An estimated left ventricular ejection fraction of 60- 65%. There is borderline LVH. No valvular pathology. No prior study for comparison. EKG notes sinus rhythm with frequent PVCs. Chest x-ray shows no active disease. PG Care Time/CCT Total # of Minutes Spent Total Time Spent with Patient: Total time spent is greater than 50% in coordination of care (as documented) at patient's floor/unit and/or counseling patient: Coding Level of Care Code 59228 INT INP/OBS CARE 3/75MIN Diagnoses Unstable angina I20.0 Hypertension I10 Hyperlipidemia E78.5
--- NOTE | 2023-04-13 16:04 | Electrocardiogram Report ---
Test Reason : Blood Pressure : / mmHG Vent. Rate : 092 BPM Atrial Rate : 092 BPM P-R Int : 194 ms QRS Dur : 084 ms QT Int : 358 ms P-R-T Axes : 059 020 034 degrees QTc Int : 442 ms Sinus rhythm with frequent Premature ventricular complexes Otherwise normal ECG When compared with ECG of 23-JUN-2011 12:59, Premature ventricular complexes are now Present Confirmed by Yvan Rodríguez ([id number]) on 04/13/2023 4:04:25 PM Referred By: Confirmed By:Yvan Rodríguez
--- NOTE | 2023-04-13 16:05 | Electrocardiogram Report ---
Test Reason : Blood Pressure : / mmHG Vent. Rate : 080 BPM Atrial Rate : 080 BPM P-R Int : 196 ms QRS Dur : 074 ms QT Int : 388 ms P-R-T Axes : 053 020 022 degrees QTc Int : 447 ms Sinus rhythm with frequent Premature ventricular complexes Otherwise normal ECG When compared with ECG of 13-APR-2023 08:28, (unconfirmed) No significant change was found Confirmed by Yvan Rodríguez ([id number]) on 04/13/2023 4:05:10 PM Referred By: REFERRED SELF Confirmed By:Yvan Rodríguez
[2023-04-13] MEDS ORDERED: NITROGLYCERIN/D5W 100MCG/ML 20ML SYR ONE (16:31)
[2023-04-13] MEDS ORDERED: HEPARIN (PORCINE) 1000 UNIT/ML 10 ML (CATH LAB USE ONLY) ONE (16:31)
[2023-04-13] MEDS ORDERED: MIDAZOLAM HCL 1 MG/ML 2ML VIAL ONE (16:31)
[2023-04-13] MEDS ORDERED: fentaNYL citrate PF 100 MCG/2 ML VIAL ONE (16:31)
[2023-04-13] MEDS ORDERED: niCARdipine HCL INJ 2.5 MG/ML 10 ML AMP ONE (16:31)
--- NOTE | 2023-04-13 16:37 | Pre Anesthesia Assessment ---
Date of Service April 13, 2023 Pre Sedation Assessment Vital Signs Temp Pulse Pulse Resp BP BP Pulse Ox 04/13/23 14:45 84 20 162/91 H 95 04/13/23 12:37 87 04/13/23 12:28 97.9 F 83 18 158/76 H 94 04/13/23 11:30 88 20 152/69 H 94 04/13/23 08:50 91 H 04/13/23 08:35 96 04/13/23 10:12 86 20 150/73 H 94 04/13/23 08:27 95 04/13/23 08:27 97.7 F 99 H 20 184/95 H 97 O2 Del Method 04/13/23 14:45 Room Air 04/13/23 12:37 04/13/23 12:28 Room Air 04/13/23 11:30 Room Air 04/13/23 08:50 04/13/23 08:35 Room Air 04/13/23 10:12 Room Air 04/13/23 08:27 Room Air 04/13/23 08:27 Room Air Cardiovascular RRR, no murmur, no edema Respiratory normal respiratory effort, lungs clear to auscultation Pre-Sedation Airway Assessment Smoking Status: Never smoker Hx Sleep Apnea: No Short, Thick Neck: No Thyromental Distance: > or= 3.5 Finger Breadths Oral Cavity: + WNL Mallampati Class: III ASA: ASA3 NPO Status Date of Last Intake of Fluids: 04/13/23 Time of Last Intake of Fluids: 06:00 Date of Last Intake of Solid Food: 04/12/23 Time of Last Intake of Solid Foods: 18:00 Procedure Planning Contraindications for Sedation: none Current Medications Reviewed: Yes Notes The planned sedation has been discussed with the patient. Informed Consent was obtained. I have identified the patient, determined the appropriateness of sedation and have assessed the patient immediately prior to the procedure. All medicine(s) and interventions are by my order.
[2023-04-13] MEDS ORDERED: ADENOSINE IV SOLN 3 MG/ML 20 ML VIAL IV ONE (16:55)
--- NOTE | 2023-04-13 17:14 | Post Anesthesia Assessment ---
Date of Service April 13, 2023 Post Sedation Assessment Vital Signs Temp Pulse Pulse Resp BP BP Pulse Ox 04/13/23 14:45 84 20 162/91 H 95 04/13/23 12:37 87 04/13/23 12:28 97.9 F 83 18 158/76 H 94 04/13/23 11:30 88 20 152/69 H 94 04/13/23 08:50 91 H 04/13/23 08:35 96 04/13/23 10:12 86 20 150/73 H 94 04/13/23 08:27 95 04/13/23 08:27 97.7 F 99 H 20 184/95 H 97 O2 Del Method 04/13/23 14:45 Room Air 04/13/23 12:37 04/13/23 12:28 Room Air 04/13/23 11:30 Room Air 04/13/23 08:50 04/13/23 08:35 Room Air 04/13/23 10:12 Room Air 04/13/23 08:27 Room Air 04/13/23 08:27 Room Air Recovery Score Activity: Moves 4 extremities Respiration: Deep Breath/Cough Circulation: +/-20% PreAnes Value Consciousness: Fully Awake Oxygen Saturation: O2 needed for >90% Discharge Sedation Level of Care: Fast Track Phase II Post Sedation Plan On clinical assessment, the patient appears to have tolerated the sedation without complications. Patient is recovering as anticipated. Patient will continue to be monitored by nursing and may be discharged when sedation discharge criteria are met per below protocol. Upon Completions of procedure up to 15 minutes continue every 5 minute vital signs and the P.A.R. score; then discharge to a Phase I or Fast Track to Phase II per the following guidelines: * Discharge Patient to appropriate Phase II area if PAR is 8 or greater or return to pre- procedure baseline. The post - procedure orders will be as directed. * If PAR score is less than 8 or not return to pre-procedure baseline then patient will follow Phase I monitoring till PAR is reached for Phase II. The Phase I may be done in procedure room or may call to secure a Phase I area. * If naloxone or flumazenil are used for reversal, hold in Phase I for continued monitoring from when last reversal dose was given for a minimum of 60 minutes or longer pending the nurse and/or physician discretion of patient condition before discharge to Phase II. Please call the Sedation Physician to re-evaluate and complete post-note for discharge to Phase II area. Do NOT discharge from procedure sedation or Phase 1 until post- sedation evaluation note is complete by procedure /sedation MD Sedation Discharge Instructions to be given to the patient at discharge to home.
--- NOTE | 2023-04-13 17:28 | Cardiac Catheterization ---
[facility] Data: [employer] Cardiac Status Clinical evaluation leading to the procedure CAD Presenation: Positive Stress Test, Sx unlikely to be ischemic and Unstable angina Anginal Classification: CCS III Diagnostic Physicians Name: Marlon Wright MD Closure Device Recommendations: Medical Therapy and/or Counseling Cardiac Cath Procedure Full Procedure Date April 13, 2023 Pre-Procedure Diagnosis Pre-Procedure Diagnosis: Angina AUC Score AUC Score: 7 Post-Procedure Diagnosis Post-Procedure Diagnosis: Moderate CAD and Normal Intracardiac Pressures Procedure(s) Performed Procedure(s) Performed: Coronary Angiography, Left Heart Cath and Fractional Flow [employer] Assistant [employer] Buyer Marlon Wright MD Endoscopy Rn(s) Serge Estimated Blood Loss Estimated Blood Loss: 10 Medication(s) Medication(s): Fentanyl, Heparin, Lidocaine 1%, Nicardipine, Nitroglycerin and Versed Summary of Findings Indication: Suspected ACS Access: 6 Fr right radial artery Catheters: [place], EBU 3.5 guide Findings: LM -normal caliber, no significant disease LAD -moderate caliber vessel, diffuse mid segment disease up to 50%, distal vessel tapers prior to apex. High medium D1 without significant disease. Small D2 30% ostial. Medium D3 40% ostial. Circumflex -large caliber vessel, 50% ostial stenosis, remainder of vessel without significant disease. RCA -dominant, large caliber vessel, midsegment luminal irregularities, 30% distal 50 to 60 % ostial RPDA. Remainder of PDA without significant disease LVEDP -9 Procedure: -Left main cannulated with EBU 3.5 guide -Gómez FFR wire navigated into mid circumflex -IFR 1.0 Wire removed from circumflex and redirected into distal LAD -IFR 0.92 -Coronary angiography revealed no apparent complications post wire/catheter removal Summary: 1. Nonobstructive moderate multivessel coronary artery disease Diffuse mid LAD up to 50% (IFR nonobstructive at 0.92). 50% ostial circumflex (IFR nonobstructive at 1.0). 50 to 60% ostial RPDA Recommendations: No acute or high risk CAD to explain patient's recent chest symptoms. Recommend continued ASCVD risk factor modification Hemodynamics Rest Ao:: 126/63/83 Final Ao: 130/75/98 LV: 129/9 Recommendations Recommendations: Medical Therapy and/or Counseling Specimens Specimens: None Radiation Exposure (mGy) 2084 Contrast (mls) 130 Anesthesia moderate 1643 - 1510 Procedural Complication(s) None Disposition [employer] Holding/Recovery I attest to the content of the Intraoperative Record and any orders documented therein. Any exceptions are noted below. [facility] Card Cath Procedure Codes Cardiac Catheterization Procedure 1: Cardiovascular Cath Procedures: 85103 Coronaries and LHC (+/-LV) Procedure 2: Cardiovascular Cath Procedures: 75047 (Doppler) Pressure Wire Procedure 3: Cardiovascular Cath Procedures: 71265 (Doppler) Pressure Wire Addl vessel Moderate Sedation Procedure 1: Sedation/Anesthesia: 81603 Mod Sedation by the same physician;Init15 Min Child Age 5 & Up PG Care Time/CCT Total # of Minutes Spent Total Time Spent with Patient: Total time spent is greater than 50% in coordination of care (as documented) at patient's floor/unit and/or counseling patient:
[2023-04-13 19:41] LABS: Partial Thromboplastin Ratio 3.4
[2023-04-13 20:01] LABS: Partial Thromboplastin Time 96.2 Seconds (21.0-31.0)
[2023-04-13] MEDS: METOPROLOL TARTRATE 25 MG TAB PO SCH (20:09)
[2023-04-13] MEDS: ALBUTEROL HFA 8 GM INHALER INH SCH (21:09)
--- NOTE | 2023-04-13 21:31 | Ultrasound Report ---
Exam(s): US VENOUS RIGHT LOWER EXTREMITY EXAM: US Duplex Right Lower Extremity Veins CLINICAL HISTORY: Reason for exam: travel, prior h/o DVT RLE, sob; r/o acuteDVT. TECHNIQUE: Real-time duplex ultrasound scan of the right lower extremity veins integrating B-mode two-dimensional vascular structure, Doppler spectral analysis, color flow Doppler imaging and compression. 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 No acute appearing DVT in the visualized common femoral, femoral, proximal deep femoral or popliteal veins. Superficial veins: Unremarkable. No thrombus in the visualized great saphenous vein. Soft tissues: No acute findings. No popliteal cyst. 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 No acute appearing deep venous thrombosis identified. Electronically signed by: Jacqui Stark M.D. 04/13/23 21:30 PM
[2023-04-14] MEDS: SODIUM CHLORIDE 0.9% 1000ML 1,000 ML IV SCH ×2 (01:48→08:38)
[2023-04-14 03:53] LABS: BUN Creatinine Ratio 16.5 (10-20); Calcium 8.8 mg/dl (8.6-10.3); Chol HDL Ratio 3.4 (0-5); Creatinine Clr Calc Pharmacy 91.4 ml/min; Est GFR (African American) 88.1 ml/min; Est GFR (Non-African American) 76.1 ml/min; Potassium 3.7 mmol/L (3.5-5.1)
[2023-04-14 04:18] LABS: Partial Thromboplastin Ratio 1.4
[2023-04-14 04:34] LABS: Partial Thromboplastin Time 40.7 Seconds (21.0-31.0)
[2023-04-14] MEDS: HEPARIN SODIUM/DEXTROSE 25,000 UNITS/500 ML BAG IV SCH (05:39)
[2023-04-14] MEDS: ALBUTEROL HFA 8 GM INHALER INH SCH ×2 (07:31→10:39)
[2023-04-14] MEDS: METOPROLOL TARTRATE 25 MG TAB PO SCH (08:15)
[2023-04-14] MEDS ORDERED: ROSUVASTATIN CALCIUM 20 MG TAB PO SCH (09:00)
[2023-04-14] MEDS ORDERED: amLODIPine BESYLATE 5 MG TAB PO SCH (09:00)
[2023-04-14] MEDS ORDERED: ASPIRIN 81 MG ECTAB PO SCH (09:00)
--- NOTE | 2023-04-14 13:04 | Discharge Summary ---
Date of Service April 14, 2023 Admission HPI Per Admitting Provider 77yo male with history of T2DM, obesity, HTN, hyperlipidemia, and extensive DVT of the RLE in 2007 (provoked, multiple car trips to [place] from [facility]) presents with 3 days of intermittent chest pressure. Patient reports that for the last 2-3 weeks he has had severe fatigue. 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 The chest pressure was associated with a "pounding" sensation as well as mild dyspnea. The symptoms improved Wednesday simply by resting. No nausea/vomiting. No diaphoresis. With respect to the "pounding" sensation he reports NO tachycardia or heart racing but that he can simply feel his heart having skipped beats and beating strongly. On Wednesday he again had chest pressure with activities as well as the pounding sensation and dyspnea on exertion. Rest would alleviate the discomfort. He could not tell me how many times he felt the chest pressure on Wednesday. Wednesday he had similar symptoms of chest pressure with activity. His fatigue persisted. Then this am he was walking his dog and about 1/4 mile into the walk he developed the chest pressure with dyspnea. He walked back to his home and the pressure continued. He rested and the symptoms did jeff. However, he then climbed one flight of steps in his home and immediately had chest pressure with dyspnea. At that point he & his dialed 911. In the ambulance he recalls still having chest pressure and aspirin along with SL nitro were given. The pressure fully resolved with such. He has been chest pressure free since the ambulance ride. Patient thinks he took his medications this am but wasn't completely sure. He & his did travel by car from March 21 to March 28 to [facility]. With respect to his DVT event in 2007 he was NOT told he had PEs at that time. Discharge Exam gen - obese, NAD eyes - PERRL HENT - hearing aids b/l; MMM; no lesions neck - no bruits; no JVD; no lymph nodes; no thyroid mass heart - irregular (PVCs); s1 s2; no murmur lungs - CTA b/l chest - no reproducible chest wall tenderness to palpation abd - obese, soft, NT, ND, BS+, no HSM ext - <1+ edema RLE; none on left; pulses 2+ b/l feet skin - stasis changes RLE mesa neuro - strength 5/5 x 4 exts; DTRs 2+ b/l upper & lower ext psych - a/o x 3 Discharge Data Allergies Allergy/AdvReac Type Severity Reaction Status Date / Time MARYA Inhibitors Allergy Verified 04/13/23 10:44 lisinopril Allergy Verified 04/13/23 10:44 codeine AdvReac Intermediate STOMACH Unverified 04/13/23 10:44 PROBLEMS Consultations 04/13/23 09:48 ED Decision to Admit Stat 04/13/23 12:37 Consult Cardiology Routine Procedures Performed Operation Date: 04/13/23 14:30 Actual Procedures p Cineradiography w/Routine Exam - Brian Wright MD p Cath, Left with Cors and Vent - Brian Wright MD s Fraction Flow [place] Addl Bg Wright MD s Fraction Flow [place] SGL Bg Wright MD Ordered Studies 04/13/23 10:36 US venous doppler LE RT Stat 04/13/23 12:25 CT angio chest PE protocol Stat 04/13/23 14:29 CL Cath Imgs for PACS use only Routine Hospital Course (1) Chest pressure: His history is concerning for ischemia. He has multiple CAD risk factors including obesity, DM, HTN, hyperlipidemia, etc. His chest pressure episodes are becoming more frequent and requiring less activity to be provoked (this am he walked up 1 flight of steps which led to chest pressure with dyspnea). The pattern could represent unstable angina despite the negative EKG and the initial negative troponin. Symptoms did jeff fully with nitroglycerin given by EMS. Alternatively, he did just travel by car extensively in late February, and had extensive DVT of the RLE in 2007. VTE (DVT with PEs) cannot be fully ruled out at this time. Plan - * HS troponin now * STAT doppler of RLE - r/o DVT; strongly consider CTA chest to definitively r/o PE * telemetry * NPO in the event he needs heart cath * heparin infusion - this will cover unstable angina as well as small chance of VTE * continue aspirin 81mg daily * add metoprolol 12.5mg BID, first dose now * I also gave amlodipine in ER due to markedly elevated BPs * cardiology consult * echo I discussed his care with Dr Rodríguez from [facility]. In light of crescendoing symptoms/episodes proceeding with stress test is likely not prudent. If VTE is excluded then proceeding with heart catheterization may be best option. (2) History of DVT (deep vein thrombosis): RLE extensive 2007 provoked - extensive car travel to/from [facility] to [place] at that time took coumadin ~2 years no VTE since then no family h/o VTE see #1 above (3) Unstable angina: see #1 above nitro SL prn if recurrent pain then give nitropaste start beta danay serial trops echo (4) PVCs (premature ventricular contractions): numerous as seen on monitoring check mag level K noted to be normal start beta danay could be indicative of active ischemia (5) Diabetes mellitus: Check Hba1c BSGs q6h while NPO novolog SSI hold metformin (6) Hyperlipidemia: LDL was 52 in 03/2022 plan to recheck lipid profile while here (7) Hypertension: uncontrolled start metoprolol 12.5mg BID and titrate as needed gave amlodipine 10mg in ER which is chronic medication for him titrate meds and/or add MARYA/ARB for optimal control (8) Obesity (BMI 30-39.9): BMI 36.6 Plan updated at bedside care d/w cardiology Discharge Plan Discharge Items Patient Disposition: Home - Self-Care Reason For Visit: CHEST PRESSURE and SHORTNESS OF BREATH Discharge Diagnosis: 1. chest pressure/shortness of breath - resolved; no evidence of heart attack, no evidence of blood clots in lungs or pneumonia; bronchial inflammation seen on CT scan - probable culprit for your symptoms 2. coronary artery disease 3. chronic DVT of the right thigh 4. high blood pressure 5. high triglycerides Activity: Per Instructions section Sexual Activity: Wait until after follow-up appointment Exercise/Sports: Wait until after follow-up appointment Driving/Machine Use: Resume 3 days after discharge Non-emergency contact: Primary Care Provider Call non-emergency contact if: you have any medication questions, your symptoms worsen and you have a fever Follow-up/Referrals: Magdalena Cleveland CRNP [Primary Care Provider] - 04/23/23 (keep previously scheduled office visit with Ms Cleveland) Diet: Carb Consistent or DM2 and Heart Healthy Ambulatory Orders: Basic Metabolic Panel (Routine) Timeframe: [id number] Location: Determined by Patient Ordered By: Emre Phipps Attending Provider Instructions: Mr Jason, You were hospitalized due to recurrent episodes of shortness of breath and chest pressure. We did not find evidence of a heart attack. We did not find blood clots of the lungs or pneumonia. Although there was no heart attack we performed a heart catheterization to rule out coronary artery disease as the cause of your symptoms. You do have several blockages in the coronary arteries however they are of mild- moderate degree. Most of the blockages are about 50%. In most cases coronary artery disease does not cause chest pressure/pain or other symptoms until the blockages are more than 70%. [facility] recommends various medications at this time for your coronary disease. In addition, we found an old, chronic DVT of your right thigh on ultrasound. We cannot date an old/chronic DVT. To err on the side of caution we are recommending going back on blood thinners for the DVT blood clot. Your CT scan showed bronchial inflammation. Bronchial inflammation/irritation ("Bronchitis") can cause shortness of breath, chest pressure or tightness, chest congestion, cough, etc. Given that we ruled out other causes of your symptoms we suspect the bronchial inflammation caused your recent shortness of breath & chest symptoms. Bronchitis can be caused by allergens (both indoor and outdoor), smoke exposure, chemical exposure, viral and bacterial infections, etc. Recommendations - 1. For your coronary disease please take - * aspirin 81mg once daily as previous * metoprolol succinate 25mg once daily - first dose AM of 04/15/23 * continue your cholesterol medication as previous 2. For your DVT blood clot take - * Eliquis 10mg (2 tabs of 5mg) twice daily x 7 days, then - * Eliquis 5mg twice daily thereafter * take your first dose TONIGHT * at minimum we should treat for 3 months * at the 3 month niraj a decision can be made about continuing on the Eliquis but at a lower, preventive dose (2.5mg twice daily) * your family doctor can perform an ultrasound in 3 months and help guide the discussion about the Eliquis 3. For your respiratory symptoms (congestion, shortness of breath, pressure, etc) you can take - * albuterol via spacer device -- 2 puffs every 4 hours as needed * see handout on spacer device 4. Please STOP your hydrochlorothiazide water pill. 5. Triglycerides -- your level was 326. Normal is <150. Please see handout on triglycerides and how to improve them. Your "good cholesterol" was 36 (ideally we get it up to 45 or higher). 6. HOLD your metformin. Please have a blood draw on 04/15/23 in the morning at any [facility] lab. If the blood work is normal we will call and give you the OK to resume the metformin at that time. Follow-up - see separate section Return to [facility] if - * you have any concerns about your heart catheterization site of the right wrist * you have worsening chest pain or pressure * you have difficulty breathing despite taking the inhaler * you have bleeding from any site as listed below * any other concerns It was our pleasure to care for you! -Dr Alvaro Phipps Lehr Stripper Provider Instructions: ACTIVITY RECOMMENDATIONS following your heart catheterization: It is common to feel weak and fatigue for a few days. * Do not drive or operate any motorized equipment for the next three days. * Limit stair usage (2 or 3 trips a day only) for the next three days. * Do not lift anything heavier than 10 pounds for the next three days. * Do not engage in vigorous exercise or any sports until you see Ms Cleveland. Light walks/light activities are fine. * You may shower the day after your procedure, but do not immerse the area for three days. Cleanse the site gently with soap and water. SPECIAL CARE INSTRUCTIONS: * You may replace the pressure dressing or band-aid the morning after the procedure. * After your procedure, it is normal to have a small bruise or small lump at the site. Examine your site daily for any change in the bruise or lump, redness, swelling, drainage or numbness. Notify your doctor if any change. BLEEDING: * If there is a small amount of bleeding at the site, lie down and apply firm pressure with a clean cloth for ten minutes. When the bleeding stops, lie quietly keeping the procedure limb straight for six hours. Notify your doctor as soon as possible. * If the bleeding does not stop after ten minutes or if there is a large amount of bleeding or spurting, call 911 immediately. Continue to lie down and hold firm pressure until help arrives. SKIN IRRITATION: * You may experience some redness and/or swelling in the area where radiation was administered. If any skin irritation occurs, please contact your family physician. Blood thinner information: Medication Instructions: Your blood clot condition is typically treated with an anticoagulant (blood thinner). Anticoagulants will thin your blood to help prevent new clots. Your blood thinner is ELIQUIS. * You should take your medication exactly as directed. * Never skip a dose. * Never take a double dose. If you miss a dose, take it as soon as you remember. Call your Primary Care doctor if you experience any of the following: * Swelling or Pain in your leg * Sudden, continuous pain deep in a muscle * Pain that worsens when you are active or when you stand still for a long time * Chest Pain * Sudden Shortness of Breath * Rapid or pounding heart beat * Fainting * Dizziness * Cough with blood or bloody sputum * Sweating more than normal * Bruises * Heavy or uncontrolled bleeding * Blood in your urine, stool or vomit * Black or tarry stools * Heavy nose bleeding Caring for Your Self at Home: * Avoid sitting, standing or lying down for long periods without moving your legs and feet * When traveling by car, stop to get out and move around at least once every 3 hours * On long airplane, train or bus rides, get up and move around when possible * If you can't get up, wiggle your toes and tighten your calves to keep your blood moving Pending Studies at Discharge: No Stand-Alone Forms: My [employer], Smoking Cessation Medications and DC Order Prescriptions: New albuterol sulfate [Ventolin HFA] 90 mcg/actuation Hfa Aerosol Inhaler 2 puff inhalation Q4H PRN (Reason: cough/shortness of breath/chest tightness or pressure) Qty: 1 0RF metoprolol succinate 25 mg tablet extended release 24 hr 25 mg PO DAILY Qty: 30 5RF Rx Instructions: for your heart and blood pressure Eliquis 5 mg tablet 5 mg PO DIRECTED Qty: 74 0RF Rx Instructions: start PM of 04/14/23: take 2 tablets (10mg) PO BID x 7 days, then lower to 1 tablet (5mg) PO BID thereafter. Eliquis 5 mg tablet 5 mg PO BID Qty: 60 1RF Rx Instructions: for 2nd and 3rd months of treatment. Continued amlodipine 10 mg tablet 10 mg PO DAILY Qty: 90 3RF rosuvastatin 20 mg tablet 20 mg PO DAILY Qty: 90 3RF epinephrine 0.3 mg/0.3 mL auto-injector 0.3 ml IM ONCE PRN (Reason: anaphylaxis) Qty: 1 aspirin [Derrick Low Dose Aspirin] 81 mg tablet,delayed release (DR/EC) 81 mg PO DAILY Qty: 30 2RF Held metformin 750 mg tablet extended release 24 hr 750 mg PO BID Qty: 180 3RF Hold Instructions: Resume on 04/15/23. you will need blood work on 04/15 to recheck your kidney function. If blood work is normal you will be able to resume late in the day on 04/15. Rx Instructions: pt aware dose change sildenafil 50 mg tablet 50 mg PO DAILY PRN (Reason: sexual activity) Qty: 10 3RF Hold Instructions: hold until you are seen by Ms Cleveland Rx Instructions: administer 30 minutes to 4 hours before activity Discontinued hydrochlorothiazide 12.5 mg tablet 12.5 mg PO DAILY Qty: 90 3RF Discharge Orders: Discharge Order (Routine); Ordered 04/14/23 Ordered By: Emre Lima/Other Patient Handouts: Triglycerides, Managing Type 2 Diabetes, Using an Inhaler with a Spacer, CAD, Diabetes: Meal Planning Admission Data Admit Date/Time: 04/13/23 09:56 Attending Provider: Emre John Admit Provider: Emre John Primary Care Provider: Magdalena Cleveland Other Providers: Emre John ; Yvan Rodríguez Other Interventions: Discharge Summary Assessment (RN) Last Done: 04/14/23 12:48 Coding Diagnoses Chest pressure R07.89 History of DVT (deep vein thrombosis) Z86.718 Unstable angina I20.0 PVCs (premature ventricular contractions) I49.3 Diabetes mellitus E11.9 Hyperlipidemia E78.5 Hypertension I10 Obesity (BMI 30-39.9) E66.9
== END 2023-04-14 13:56 | disposition home or self-care (01) ==
LOC: 4W 08:24 → ED 08:24 → 4W 12:40